=== PATIENT | female | born 1950 | race Asian ===

== ENCOUNTER 2021-04-28 06:55 | Day surgery (SDC) | payer OTHER ==
[2021-04-22 09:27] VITALS: BMI 17.7
[2021-04-28] MEDS ORDERED: BUPIVACAINE HCL/PF 0.5% (5MG/ML) 10 ML VIAL ONE (09:21)
[2021-04-28] MEDS ORDERED: SODIUM CHLORIDE 0.9% P/F 10 ML VIAL IJ ONE (09:21)
[2021-04-28] MEDS ORDERED: BUPIVACAINE LIPOSOME/PF (EXPAREL) 266 MG/20 ML VIAL ONE (09:21)
[2021-04-28] MEDS ORDERED: MIDAZOLAM HCL 2 MG/2 ML SINGLE DOSE VIAL ONE (09:21)
[2021-04-28] MEDS ORDERED: MAG HYDROX/AL HYDROX/SIMETH 30 ML UNIT-DOSE CUP PO PRN (09:55)
[2021-04-28] MEDS ORDERED: MAGNESIUM HYDROX 2400MG/30ML ORAL SUSPENSION 30 ML CUP PO PRN (09:55)
[2021-04-28] MEDS ORDERED: ONDANSETRON 4 MG/2 ML VIAL IVPUSH PRN (09:55)
[2021-04-28] MEDS ORDERED: CALCIUM 500MG/VIT-D 200 UNITS COMBO TABLET (FP) PO SCH (10:00)
[2021-04-28] MEDS ORDERED: LACTATED RINGERS SOLUTION 1,000 ML IV SCH (10:00)
[2021-04-28] MEDS ORDERED: oxyCODONE HCL 5 MG TABLET PO PRN ×2 (10:01)
[2021-04-28] MEDS ORDERED: PROPOFOL 20 ML ONE ×2 (10:26→11:50)
[2021-04-28] MEDS ORDERED: ONDANSETRON 4 MG/2 ML VIAL ONE (10:29)
[2021-04-28] MEDS ORDERED: DEXAMETHASONE SOD PHOSPHATE 4 MG/1 ML VIAL ONE (10:29)
[2021-04-28] MEDS ORDERED: ceFAZolin SODIUM 1 GM VIAL ONE ×2 (10:29→17:00)
[2021-04-28] MEDS ORDERED: TRANEXAMIC ACID 1000 MG/10 ML VIAL ONE (10:29)
[2021-04-28] MEDS ORDERED: LIDOCAINE HCL/PF 2% SDV 5ML VIAL ONE (10:29)
[2021-04-28] MEDS ORDERED: ePHEDrine SULFATE 50 MG/1 ML AMPULE ONE (11:29)
[2021-04-28] MEDS ORDERED: ACETAMINOPHEN 1000 MG/100 ML BAG IVPB ONE (12:25)
[2021-04-28] MEDS ORDERED: ACETAMINOPHEN 500 MG TABLET (FP) PO SCH (12:30)
[2021-04-28] MEDS ORDERED: DEXTROSE 5%-WATER - 50 ML IVPB ONE (17:01)
[2021-04-28] MEDS: CEFAZOLIN 1 GM in DEXTROSE 5%-WATER - 50 ML IVPB SCH (17:08)
[2021-04-28] MEDS ORDERED: CEFAZOLIN 1 GM in DEXTROSE 5%-WATER - 50 ML IVPB SCH (18:00)
[2021-04-28] MEDS: ACETAMINOPHEN 500 MG TABLET (FP) PO SCH (20:34)
[2021-04-28] MEDS: ASPIRIN COATED 81 MG TABLET.EC PO SCH (21:42)
[2021-04-28] MEDS: FAMOTIDINE 10 MG TABLET PO SCH ×2 (21:43→21:46)
[2021-04-28] MEDS: SENNOSIDES/DOCUSATE COMBO (SENNA PLUS) TABLET (UD) PO SCH ×2 (21:43→21:46)
[2021-04-28] MEDS ORDERED: ACETAMINOPHEN 325 MG TABLET (FP) PO SCH (22:00)
[2021-04-29] MEDS ORDERED: ceFAZolin SODIUM 1 GM VIAL ONE ×2 (01:09→09:28)
[2021-04-29] MEDS ORDERED: DEXTROSE 5%-WATER - 50 ML IVPB ONE ×2 (01:09→09:28)
[2021-04-29] MEDS: CEFAZOLIN 1 GM in DEXTROSE 5%-WATER - 50 ML IVPB SCH ×2 (01:13→09:35)
[2021-04-29] MEDS: ACETAMINOPHEN 500 MG TABLET (FP) PO SCH ×2 (04:25→12:26)
[2021-04-29 08:15] LABS: CALCIUM 8.4 mg/dl (8.5-10); CREATININE 0.8 mg/dl (0.55-1.3)
[2021-04-29] MEDS: ASPIRIN COATED 81 MG TABLET.EC PO SCH (09:36)
[2021-04-29] MEDS: SENNOSIDES/DOCUSATE COMBO (SENNA PLUS) TABLET (UD) PO SCH ×2 (09:37→09:45)
[2021-04-29] MEDS: MULTIVITAMINS (DAILY MVI) TABLET (FP) PO SCH ×2 (09:37→09:38)
[2021-04-29] MEDS: FAMOTIDINE 10 MG TABLET PO SCH (09:45)
[2021-04-29] MEDS ORDERED: CELECOXIB 200 MG CAPSULE PO SCH (10:00)
[2021-04-29 10:16] LABS: HEMATOCRIT 37.7 % (32.4-45.2); HEMOGLOBIN 12.6 GM/dL (10.7-15.3); MCH 32.9 pg (25.7-33.7); MCHC 33.5 g/dl (32.0-36.0); MEAN CELL VOLUME 98.1 fl (80-96); MEAN PLT VOLUME 7.4 fl (7.5-11.1); PLATELET COUNT 186 10^3/uL (134-434); RBC 3.84 M/mm3 (3.60-5.2); RDW 12.9 % (11.6-15.6)
[2021-04-29 14:05] VITALS: BP 121/73; PULSE 75; TEMP 98.4
== END 2021-04-29 15:07 | disposition home or self-care (01) ==
LOC: FASUSAT 06:55 → FM/S 14:06 → FASUSAT 04-29 15:07
PROVIDERS: ATTEND Orthopaedic Surgery
PROC: 0SRD0J9 Replacement of Left Knee Joint with Synthetic Substitute, Cemented, Open Approach (ICD-10-PCS; principal; 2021-04-28 10:50)
DX: M17.12 Unilateral primary osteoarthritis, left knee (principal)
CPT/HCPCS: 27447; C1776; 36415; 73560-TC-LT-FY; 80048; 85027; 88305-TC; 88311-TC; 94760; 97010-GP; 97116-GP; 97162-GP; J0131

== ENCOUNTER 2023-09-20 07:25 | Day surgery (SDC) | payer OTHER ==
[2023-09-12 16:02] VITALS: BMI 18.6
[2023-09-20] MEDS ORDERED: CELECOXIB 200 MG CAPSULE ONE (07:42)
[2023-09-20] MEDS: CELECOXIB 200 MG CAPSULE PO ONE (07:45)
[2023-09-20] MEDS ORDERED: BUPIVACAINE LIPOSOME/PF (EXPAREL) 266 MG/20 ML VIAL ONE (09:10)
[2023-09-20] MEDS ORDERED: MIDAZOLAM HCL 2 MG/2 ML SINGLE DOSE VIAL ONE ×2 (09:10→10:36)
[2023-09-20] MEDS ORDERED: BUPIVACAINE HCL/PF 0.5% (5 MG/ML) 30 ML VIAL IJ ONE (09:10)
[2023-09-20] MEDS ORDERED: BUPIVACAINE HCL/PF 0.5% (5MG/ML) 10 ML VIAL ONE (09:36)
[2023-09-20] MEDS ORDERED: ceFAZolin SODIUM 1 GM VIAL ONE (10:21)
[2023-09-20] MEDS ORDERED: ONDANSETRON 4 MG/2 ML VIAL ONE (10:21)
[2023-09-20] MEDS ORDERED: TRANEXAMIC ACID 1000 MG/10 ML VIAL ONE ×2 (10:21→10:37)
[2023-09-20] MEDS ORDERED: GLYCOPYRROLATE 0.2 MG/1 ML VIAL ONE (11:04)
[2023-09-20] MEDS ORDERED: MAGNESIUM HYDROX 2400MG/30ML ORAL SUSPENSION 30 ML CUP PO PRN (11:51)
[2023-09-20] MEDS ORDERED: MAG HYDROX/AL HYDROX/SIMETH 30 ML UNIT-DOSE CUP PO PRN (11:51)
[2023-09-20] MEDS ORDERED: oxyCODONE HCL 5 MG TABLET PO PRN ×2 (12:22→13:11)
[2023-09-20] MEDS ORDERED: ONDANSETRON 4 MG/2 ML VIAL IVPUSH PRN (12:22)
[2023-09-20] MEDS ORDERED: ACETAMINOPHEN INJECTION 100 ML IVPB ONE (12:55)
[2023-09-20] MEDS: ACETAMINOPHEN 1000 MG/100 ML BAG IVPB SCH (13:00)
[2023-09-20] MEDS ORDERED: KETOROLAC TROMETHAMINE 30 MG/1 ML VIAL IVPUSH PRN (13:00)
[2023-09-20] MEDS: ONDANSETRON 4 MG/2 ML VIAL IVPUSH PRN (14:27)
[2023-09-20] MEDS: SODIUM CHLORIDE 1,000 ML IV SCH (15:46)
[2023-09-20] MEDS: LACTATED RINGERS SOLUTION 1,000 ML IV SCH (15:47)
[2023-09-20] MEDS: CEFAZOLIN SODIUM 2 GM in DEXTROSE 5%-WATER 100 ML IVPB SCH (16:41)
[2023-09-20] MEDS: FAMOTIDINE 20 MG TABLET PO SCH (21:37)
[2023-09-20] MEDS: METOPROLOL TARTRATE 25 MG TABLET (FP) PO SCH (21:37)
[2023-09-20] MEDS: DEXAMETHASONE 4 MG TABLET (FP) PO SCH (21:37)
[2023-09-20] MEDS: ASPIRIN 81 MG CHEWABLE TABLETS PO SCH (21:38)
[2023-09-20] MEDS: SENNOSIDES/DOCUSATE COMBO (SENNA PLUS) TABLET (UD) PO SCH (21:38)
[2023-09-20] MEDS ORDERED: CELECOXIB 100 MG CAPSULE PO SCH (22:00)
[2023-09-20] MEDS ORDERED: oxyCODONE HCL 10 MG SUSTAINED ACTING TABLET PO SCH (22:00)
[2023-09-21 05:51] VITALS: RESP 18
[2023-09-21] MEDS: CELECOXIB 100 MG CAPSULE PO SCH (09:18)
[2023-09-21] MEDS: ACETAMINOPHEN 325 MG TABLET (FP) PO SCH (12:08)
[2023-09-21 14:17] VITALS: BP 112/67; PULSE 60; TEMP 98.3
== END 2023-09-21 14:41 | disposition home or self-care (01) ==
LOC: FASUSAT 07:25 → FM/S 13:30 → FASUSAT 09-21 14:41
PROVIDERS: ATTEND Orthopaedic Surgery
PROC: 0SRC0J9 Replacement of Right Knee Joint with Synthetic Substitute, Cemented, Open Approach (ICD-10-PCS; principal; 2023-09-20 10:01)
DX: M17.11 Unilateral primary osteoarthritis, right knee (principal)
CPT/HCPCS: 73560-TC-RT-FY; 86850; 86900; 86901; 94760; 97010-GP; 97116-GP; 97162-GP; C1776; C1889; J0131